=== PATIENT | male | born 1950 ===

== ENCOUNTER 2018-11-08 09:12 | Outpatient (CLI) | payer SELFPAY | END 2018-11-08 09:13 | disposition home or self-care (01) | LOC: C.CARD 09:13 | DX: R06.02 Shortness of breath (principal); I87.2 Venous insufficiency (chronic) (peripheral) ==

== ENCOUNTER 2018-12-10 13:19 | Emergency (ER) | payer SELFPAY ==
[2018-12-10 13:33] VITALS: BP 139/76; PULSE 65; RESP 18; TEMP 98.5; O2SAT 96
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
--- NOTE | 2018-12-10 14:33 | RAD ---
Date of service: 12/10/2018 PROCEDURE: Left Ankle Radiographs. HISTORY: ankle swelling COMPARISON: None available. TECHNIQUE: 3 views obtained. FINDINGS: BONES: Normal. No fracture. JOINTS: Normal. No osteoarthritis. Ankle mortise maintained. Talar dome intact SOFT TISSUES: [id number] soft tissue swelling. OTHER FINDINGS: None. IMPRESSION: No definite evidence of acute fracture or dislocation. Soft tissue swelling.
== END 2018-12-10 15:08 | disposition home or self-care (01) ==
LOC: C.ER 13:19
DX: S93.402A Sprain of unspecified ligament of left ankle, initial encounter (principal); X58.XXXA Exposure to other specified factors, initial encounter
CPT/HCPCS: 73610; 96372; 99284; J1885